=== PATIENT | male | born 1960 | race African-American/Black ===

== ENCOUNTER 2016-06-27 11:44 | Emergency (ER) | payer OTHER ==
[~2016-06-27] VITALS: Ht 180.3 cm; Wt 99.8 kg
[2016-06-27 13:29] LABS: ABSOLUTE NEUTROPHILS 4.5 thou/uL (1.4-8.2); BASOPHILS 0.8 % (0.0-2.0); HEMATOCRIT 37.7 % (42.0-52.0); HEMOGLOBIN 12.9 gm/dL (14.0-18.0); MCH 31.4 pg (26.0-34.0); MCHC 34.3 g/dL (28.0-37.0); MCV 91.5 fL (80.0-100.0); PLATELET COUNT 334 thou/uL (150-400); POLYS 64.2 % (36.0-66.0); RBC 4.12 mil/uL (4.50-6.00)
[2016-06-27 13:30] LABS: MANUAL DIFF NO
[2016-06-27 13:35] LABS: CALCIUM 8.7 mg/dL (8.5-10.1); CREATININE 2.5 mg/dL (0.7-1.3); POTASSIUM 3.4 mmol/L (3.5-5.1)
[2016-06-27 14:44] VITALS: BP 144/87
[2016-06-27] MEDS ORDERED: POLYMYXIN B/TMP10 ML OPHTHALMIC (14:48)
== END 2016-06-27 15:05 | disposition home or self-care (01) ==
LOC: ER 11:44
PROVIDERS: Emergency Medicine
DX: A32.9 Listeriosis, unspecified (principal); H10.89 Other conjunctivitis; I10 Essential (primary) hypertension; F12.10 Cannabis abuse, uncomplicated; Z88.2 Allergy status to sulfonamides; Z88.5 Allergy status to narcotic agent